=== PATIENT | female | born 1995 ===

== ENCOUNTER 2016-06-14 17:35 | Emergency (ER) | payer OTHER ==
[2016-06-14 17:35] VITALS: BMI 17.2
[2016-06-14 17:46] VITALS: BP 120/77; PULSE 66; RESP 18; TEMP 98.1; O2SAT 100
[2016-06-14] MEDS ORDERED: Naproxen 550 mg Tab PO STA (18:20)
--- NOTE | 2016-06-14 18:22 | C.PDOC ---
History Of Present Illness Three days of toothache. Has dental apt in 2 days Time Seen by Provider: 06/14/16 18:03 Chief Complaint (Nursing): Dental Pain History Per: Patient History/Exam Limitations: no limitations Onset/Duration Of Symptoms: Days Severity: Moderate Past Medical History Reviewed: Historical Data, Nursing Documentation, Vital Signs Vital Signs: Last Vital Signs Temp 98.1 F 06/14/16 17:44 Pulse 66 06/14/16 17:44 Resp 18 06/14/16 17:44 BP 120/77 06/14/16 17:44 Pulse Ox 100 06/14/16 18:24 - Medical History PMH: No Chronic Diseases - [facility] Procedures ARTIF RUPT MEMBRANES NEC (04/16/14) MANUAL ASSIST DELIV NEC (04/16/14) REPAIR OB LACERATION NEC (04/16/14) Family History: States: Unknown Family Hx - Social History Hx Alcohol Use: No Hx Substance Use: No Review Of Systems Except As Marked, All Systems Reviewed And Found Negative. Physical Exam - Physical Exam Appears: Well, Non-toxic, No Acute Distress Skin: Normal Color, Warm, Dry Oral Mucosa: Moist Tongue: Normal Appearing Teeth: Tender To Palpation (# 3) Gingiva: No Swelling Lymphatic: No Adenopathy Neurological/Psych: Oriented x3, Normal Speech, Normal Cognition ED Course And Treatment O2 Sat by Pulse Oximetry: 100 Progress Note: Medicated with pen vk and naprosyn Disposition Counseled Patient/Family Regarding: Diagnosis, Need For Followup - Disposition Disposition: HOME/ ROUTINE Disposition Time: 18:22 Condition: GOOD Prescriptions: Naproxen [Naprosyn] 1 tab PO BID PRN #25 tab PRN Reason: Pain Penicillin VK [Pen-Vee K] 2 tab PO BID #28 tab Instructions: Toothache (ED) - Clinical Impression Clinical Impression: Pain, dental
[2016-06-14] MEDS ORDERED: Naproxen 550 mg Tab PO ONE (18:27)
== END 2016-06-14 18:37 | disposition home or self-care (01) ==
LOC: C.ER 17:35
DX: K08.89 Other specified disorders of teeth and supporting structures (principal)

== ENCOUNTER 2016-09-05 17:33 | Emergency (ER) | payer OTHER ==
[2016-09-05 17:33] VITALS: BMI 17.2
[2016-09-05 17:39] VITALS: TEMP 98.3
--- NOTE | 2016-09-05 18:20 | C.PDOC ---
History Of Present Illness 21 y/o female c/o left sided non-radiating chest pressure that started around 5 pm today after work ,with feeling like its hard to take a deep breath; pressure mostly constant since then, worse when at rest. pt has similar episode about 2 months ago that was more intermittent, chest pressure lasted about 2 days and resolved spontaneously. pt did not seek medical care then. pt denies feeling anxious, though sts she felt nervous about having this cp for a second time. denies any use of ocp, no recent prolonged immobilization, no surgeries.denies leg pain or swelling. minimal cough., no fever. Time Seen by Provider: 09/05/16 18:18 Chief Complaint (Nursing): Anxiety History Per: Patient History/Exam Limitations: no limitations Onset/Duration Of Symptoms: Hrs Current Symptoms Are (Timing): Still Present Severity: Moderate Involuntary Hold By: None Recent travel outside of the [place]: No Past Medical History Reviewed: Historical Data, Nursing Documentation, Vital Signs Vital Signs: Last Vital Signs Temp 98.3 F 09/05/16 17:38 Pulse 75 09/05/16 20:12 Resp 18 09/05/16 20:12 BP 119/69 09/05/16 20:12 Pulse Ox 99 09/05/16 20:27 - [facility] Procedures ARTIF RUPT MEMBRANES NEC (04/16/14) MANUAL ASSIST DELIV NEC (04/16/14) REPAIR OB LACERATION NEC (04/16/14) Family History: States: Unknown Family Hx - Social History Hx Alcohol Use: No Hx Substance Use: No - Immunization History Hx Tetanus Toxoid Vaccination: No Hx Influenza Vaccination: No Hx Pneumococcal Vaccination: No Review Of Systems Constitutional: Negative for: Fever, Chills Cardiovascular: Positive for: Chest Pain. Negative for: Palpitations Respiratory: Positive for: Cough. Negative for: Shortness of Breath, Sputum Gastrointestinal: Negative for: Vomiting, Abdominal Pain Musculoskeletal: Negative for: Leg Pain Neurological: Negative for: Weakness, Numbness Physical Exam - Physical Exam Appears: Non-toxic, No Acute Distress Skin: Warm, Dry, No Rash Head: Atraumatic, Normacephalic Eye(s): bilateral: Normal Inspection Throat: Normal Neck: Normal ROM, No Midline Cervical Tenderness, Supple Chest: Symmetrical, No Deformity, No Tenderness (no reproducible chest wall tenderness) Cardiovascular: Rhythm Regular, No Murmur Respiratory: Normal Breath Sounds, No Rales, No Rhonchi, No Wheezing Gastrointestinal/Abdominal: Normal Exam, Soft, No Tenderness Extremity: Normal ROM, No Pedal Edema, No Calf Tenderness, No Swelling Extremity: Bilateral: Atraumatic Pulses: Left Radial: Normal, Right Radial: Normal, Left Dorsalis Pedis: Normal, Right Dorsalis Pedis: Normal Neurological/Psych: Oriented x3, Normal Speech, Normal Cognition, Normal Motor, Normal Sensation ED Course And Treatment - Laboratory Results Urine POC: Negative ECG: Interpreted By Me, Viewed By Me ECG Rhythm: Sinus Rhythm ECG Interpretation: Normal Rate From EC (BPM) O2 Sat by Pulse Oximetry: 99 (room air) Pulse Ox Interpretation: Normal - Radiology CXR: Interpreted by Me, Viewed By Me CXR Interpretation: Yes: No Acute Disease Medical Decision Making Medical Decision Making: pt appears well, smiling. no reproducible pain. with normal ekg and cxr. pain worse with rest. will d/c home with cliinic f/u with recommendation for echocardiogram. Disposition Counseled Patient/Family Regarding: Studies Performed, Diagnosis, Need For Followup - Disposition Referrals: [facility] [Outside] [facility] [Outside] Disposition: HOME/ ROUTINE Disposition Time: 20:17 Condition: STABLE Additional Instructions: Seguimiento en la clnica mdica; Si tiene problemas para hacer eleonora carlin, llame a la conserjera, recomiende que reciba un ecocardigrama, regrese a urgencias por cualquier dolor de pecho peor, falta de aliento, fiebre o cualquier otro s ntoma relacionado Instructions: Chest Pain (ED) Forms: Gen Discharge Inst Ugandan, Work Excuse Print Language: MAORI - Clinical Impression Clinical Impression: Chest pain of unknown etiology - 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 - Scribe Statement The provider has reviewed the documentation as recorded by the Libertadibandree Murry All medical record entries made by the Scribe were at my direction and personally dictated by me. I have reviewed the chart and agree that the record accurately reflects my personal performance of the history, physical exam, medical decision making, and the department course for this patient. I have also personally directed, reviewed, and agree with the discharge instructions and disposition.
--- NOTE | 2016-09-05 18:20 | C.PDOC ---
Time Seen by Provider: 09/05/16 18:18 Chief Complaint (Nursing): Anxiety Past Medical History Vital Signs: Last Vital Signs Temp 98.3 F 09/05/16 17:38 Pulse 83 09/05/16 17:38 Resp 20 09/05/16 17:38 BP 119/75 09/05/16 17:38 Pulse Ox 99 09/05/16 17:38 - [facility] Procedures ARTIF RUPT MEMBRANES NEC (04/16/14) MANUAL ASSIST DELIV NEC (04/16/14) REPAIR OB LACERATION NEC (04/16/14) Family History: States: Unknown Family Hx - Social History Hx Alcohol Use: No Hx Substance Use: No - Immunization History Hx Tetanus Toxoid Vaccination: No Hx Influenza Vaccination: No Hx Pneumococcal Vaccination: No ED Course And Treatment O2 Sat by Pulse Oximetry: 99 Disposition - Disposition Referrals: Clinic,Med Surg [Primary Care Provider] -
[2016-09-05 20:12] VITALS: BP 119/69; PULSE 75; RESP 18
[2016-09-05 20:13] VITALS: O2SAT 99
--- NOTE | 2016-09-06 08:10 | RAD ---
HISTORY: left chest pain, cough COMPARISON: No prior. TECHNIQUE: Chest PA and lateral FINDINGS: LUNGS: No active pulmonary disease. PLEURA: No significant pleural effusion identified. No pneumothorax apparent. CARDIOVASCULAR: Normal. OSSEOUS STRUCTURES: No significant abnormalities. VISUALIZED UPPER ABDOMEN: Normal. OTHER FINDINGS: None. IMPRESSION: No active disease.
--- NOTE | 2016-09-07 07:04 | CARD ---
APPROVED REPORT EKG Measurement Heart [id number] ID [id number] <Conclusion> Normal sinus rhythm Normal ECG
== END 2016-09-05 20:20 | disposition home or self-care (01) ==
LOC: C.ER 17:33 → SUPCPDRO 17:33 → C.ER 20:20
DX: R07.89 Other chest pain (principal)

== ENCOUNTER 2018-03-31 17:10 | Emergency (ER) | payer SELFPAY ==
[2018-03-31 17:10] VITALS: BMI 17.2
[2018-03-31 17:28] VITALS: BP 121/77; PULSE 81; RESP 18; TEMP 98.4; O2SAT 100
--- NOTE | 2018-03-31 17:34 | C.PDOC ---
History Of Present Illness 23 year old female presents to the ED for evaluation of intermittent headache and pain behind eyes alternating left and right sides. Patient is also c/o sinus congestion. She denies fever, chills. Time Seen by Provider: 03/31/18 17:30 Chief Complaint (Nursing): Headache History Per: Patient History/Exam Limitations: no limitations Onset/Duration Of Symptoms: Intermittent Episodes Current Symptoms Are (Timing): Still Present Quality: Aching, "Pain" Past Medical History Reviewed: Historical Data, Nursing Documentation, Vital Signs Vital Signs: Last Vital Signs Temp 98.4 F 03/31/18 17:25 Pulse 81 03/31/18 17:25 Resp 18 03/31/18 17:25 BP 121/77 03/31/18 17:25 Pulse Ox 100 03/31/18 17:25 - Medical History PMH: No Chronic Diseases Surgical History: No Surg Hx - [facility] Procedures ARTIF RUPT MEMBRANES NEC (04/16/14) MANUAL ASSIST DELIV NEC (04/16/14) REPAIR OB LACERATION NEC (04/16/14) Family History: States: Unknown Family Hx - Social History Hx Alcohol Use: No Hx Substance Use: No - Immunization History Hx Tetanus Toxoid Vaccination: No Hx Influenza Vaccination: No Hx Pneumococcal Vaccination: No Review Of Systems Eyes: Positive for: Pain (behind eyes, alternating left and right ) ENT: Positive for: Other (sinus congestion ) Neurological: Positive for: Headache Physical Exam - Physical Exam Appears: Non-toxic, No Acute Distress Skin: Normal Color, Warm, Dry Head: Atraumatic, Normacephalic Eye(s): bilateral: Normal Inspection Ear(s): Bilateral: Normal Nose: Other (severe erythema to nasal passages with kissing turbinates bilaterally ) Oral Mucosa: Moist Throat: Normal, No Erythema, No Exudate Neck: Supple Chest: Symmetrical, No Deformity, No Tenderness Cardiovascular: Rhythm Regular, No Murmur Respiratory: Normal Breath Sounds, No Rales, No Rhonchi, No Wheezing Extremity: Normal ROM, Capillary Refill (less than 2 seconds ) Neurological/Psych: Oriented x3, Normal Speech, Normal Cognition ED Course And Treatment O2 Sat by Pulse Oximetry: 100 (on RA) Pulse Ox Interpretation: Normal Progress Note: Motrin PO and Sudafed PO given. Medical Decision Making Medical Decision Making: nasal passage inflammation provoking sinus headaches Disposition Doctor Will See Patient In The: Office Counseled Patient/Family Regarding: Studies Performed, Diagnosis - Disposition Referrals: [facility] [Outside] Disposition: HOME/ ROUTINE Disposition Time: 17:36 Condition: GOOD Additional Instructions: pseudafed 30 mg cada 6 horas jeannie necessario para dolor de los sinuses Cualquier Cold medican que dice "Sinus", ie: Tylenol "Cold and Sinus" Flonase Espray- 1 espray cada lado del nariz cada 12 horas ibuprofeno 400-600 mg cada 6 horas jeannie necessario Instructions: Sinus Headache (DC) Forms: DocbookMD (Emirati) Print Language: PERSIAN - Clinical Impression Clinical Impression: Headache - Scribe Statement The provider has reviewed the documentation as recorded by the Scribe (Tamera Arroyo) Provider Attestation: All medical record entries made by the Scribe were at my direction and personally dictated by me. I have reviewed the chart and agree that the record accurately reflects my personal performance of the history, physical exam, medical decision making, and the department course for this patient. I have also personally directed, reviewed, and agree with the discharge instructions and disposition.
== END 2018-03-31 17:45 | disposition home or self-care (01) ==
LOC: C.ER 17:10
DX: R51 Headache (principal)